=== PATIENT | female | born 1965 | race Caucasian/White ===

== ENCOUNTER → 2024-10-20 12:35 | Outpatient (BNVA) | payer OTHER, SELFPAY | PROVIDERS: Family Provider Family Medicine; Visit Provider Nurse Practitioner Women's Health | DX: R61 Generalized hyperhidrosis (principal) | CPT/HCPCS: 82306 ==

== ENCOUNTER 2024-12-30 07:51 | Outpatient (CLI) | payer OTHER, SELFPAY ==
--- NOTE | 2024-12-30 08:00 | NM_ITS ---
WS: [id number] EXAMINATION: NM parathyroid 35827 ORDER DATE: 12/30/2024 8:10 AM COMPARISON: None HISTORY hypercalcemia TECHNIQUE: Parathyroid scintigraphy with 19.5 mCi Tc 99m sestamibi administered. AP and oblique views obtained with and without chin and suprasternal notch markers. Initial and 2 hour delayed imaging acquired. FINDINGS: Normal homogeneous RIGHT thyroid lobe uptake. Nodular LEFT mid and lower thyroid activity on the initial imaging. Normal salivary gland uptake. Focal nodular retention of radiotracer activity on the delayed imaging involving the LEFT inferior thyroid lobe suspicious for parathyroid adenoma. No other suspicious areas of retained activity. NM/NM parathyroid [id number] IMPRESSION: 1. Focal nodular retention of radiotracer LEFT inferior thyroid lobe suspiciou s for parathyroid adenoma. No recent thyroid ultrasound studies for comparison. Consider ultrasound thyroid in further evaluation.
== END 2024-12-30 07:52 | disposition home or self-care (01) ==
PROVIDERS: Family Provider Family Medicine; PCP Nurse Practitioner; Visit Provider Internal Medicine
DX: E07.9 Disorder of thyroid, unspecified (principal); E21.0 Primary hyperparathyroidism; E04.1 Nontoxic single thyroid nodule
CPT/HCPCS: 78070; A9500

== ENCOUNTER 2025-01-27 14:24 | Outpatient (CLI) | payer OTHER, SELFPAY ==
[2025-01-27 16:14] LABS: Alanine Aminotransferase 24 U/L (0-33); Albumin Level 4.2 g/dL (3.5-5.2); Alkaline Phosphatase 147 U/L (35-105); Aspartate Amino Transferase 20 U/L (0-32); Blood Urea Nitrogen 14 mg/dL (8-23); Calcium 11.5 mg/dL (8.5-10.5); Carbon Dioxide 21 mmol/L (22-29); Chloride 106 mmol/L (98-107); Globulin 2.5 g/dL (1.3-4.6); Glucose 98 mg/dL (65-115); Osmolality Calculated 288 mOsm/kg (285-295); Sodium 139 mmol/L (136-145); Total Protein 6.7 g/dL (6.6-8.7)
[2025-01-27 16:16] LABS: Calcium 11.7 mg/dL (8.5-10.5)
[2025-01-27 16:17] LABS: Anion Gap 16.0 (5-19); Potassium 4.0 mmol/L (3.5-5.1)
== END 2025-01-27 14:25 | disposition home or self-care (01) ==
PROVIDERS: Family Provider Family Medicine; PCP Nurse Practitioner; Visit Provider Internal Medicine
DX: E07.9 Disorder of thyroid, unspecified (principal)
CPT/HCPCS: 36415; 80053; 82310; 83970

== ENCOUNTER → 2025-03-01 15:12 | Outpatient (BNVA) | payer OTHER, SELFPAY | PROVIDERS: Family Provider Family Medicine; PCP Nurse Practitioner; Visit Provider Nurse Practitioner Women's Health | DX: Z78.0 Asymptomatic menopausal state (principal); Z79.890 Hormone replacement therapy | CPT/HCPCS: 82670 ==

== ENCOUNTER → 2025-03-13 11:22 | Outpatient (BNVA) | payer OTHER, SELFPAY | PROVIDERS: Family Provider Family Medicine; PCP Nurse Practitioner; Referring Provider Nurse Practitioner; Visit Provider Internal Medicine Rheumatology | DX: M25.50 Pain in unspecified joint (principal); Z79.899 Other long term (current) drug therapy | CPT/HCPCS: 36415; 80076; 82565; 85025; 85651; 86140; 86480; 86704; 86803; 87340 ==